=== PATIENT | female | born 1960 | race Caucasian/White ===

== ENCOUNTER → 2018-03-22 | Outpatient (CLI) | payer BC ==
[~2018-03-22] MED LIST: ASPIRIN 32325 MG/TAB PO; COLACE 100100 MG/CAP PO; NORCO 325 MG-7.1 TAB PO; ZOFRAN INJ4 MG/2 ML IV; ZYRTEC 10MG10 MG PO
== END ==
LOC: MC.RAD 14:40
DX: Z12.31 Encounter for screening mammogram for malignant neoplasm of breast (principal)

== ENCOUNTER 2018-08-02 13:11 | Day surgery (SDC) | payer BC ==
[~2018-08-02] VITALS: Ht 167.6 cm; Wt 73.8 kg
[2018-08-02] VITALS (9 sets, daily range): BP systolic 105–135; BP diastolic 51–73; PULSE 66–82; TEMP 97.7–98.2
[~2018-08-02 13:11] MED LIST changes: -MUCINEX 60600 MG/TA1 PO
[2018-08-02] MEDS ORDERED: MUCINEX 60600 MG/TA1 PO (13:43)
[2018-08-03] VITALS: BP 118/57; PULSE 67; TEMP 97.5
[2018-08-03 04:00] VITALS: BP 111/61; PULSE 67; TEMP 97.4
[2018-08-03 07:53] LABS: ALBUMIN 4.2 gm/dL (3.5-5.0); BILIRUBIN,TOTAL 0.7 mg/dL (0.0-1.0); CALCIUM 9.6 mg/dL (8.4-10.2); CREATININE, serum 0.71 mg/dL (0.52-1.25); POTASSIUM 5.2 mmol/L (3.4-5.0); TOTAL PROTEIN 7.4 gm/dL (6.4-8.2)
[2018-08-03 09:45] VITALS: BP 112/62; PULSE 72; TEMP 97.7
== END 2018-08-03 17:45 | disposition home or self-care (01) ==
LOC: SDCO 13:11 → OB 19:25 → SDCO 08-03 17:45
PROVIDERS: Surgery
DX: K80.10 Calculus of gallbladder with chronic cholecystitis without obstruction (principal); Z87.891 Personal history of nicotine dependence
CPT/HCPCS: OP; J0330; J1100; J1885; J2405; J2704; J3010; J7120; Q9967

== ENCOUNTER → 2018-08-02 | Outpatient (CLI) | payer BC ==
[~2018-08-02] MED LIST changes: +MUCINEX 60600 MG/TA1 PO
== END ==
LOC: COL.RAD 10:42
DX: K80.20 Calculus of gallbladder without cholecystitis without obstruction (principal); R74.8 Abnormal levels of other serum enzymes